=== PATIENT | male | born 1985 | race Caucasian/White ===

== ENCOUNTER → 2023-08-25 09:15 | Outpatient (CLI) | payer OTHER, SELFPAY ==
[2023-08-25 20:26] LABS: Alanine Aminotransferase 27 IU/L (<50); Albumin 4.4 g/dL (3.5-5.0); Albumin Globulin Ratio 1.6 (1.0-2.8); Alkaline Phosphatase 67 U/L (38-126); Aspartate Aminotransferase 30 IU/L (17-59); BUN Creatinine Ratio 18.4 (6-22); Bilirubin Total 1.2 mg/dL (0.2-1.3); Blood Urea Nitrogen 14 mg/dL (9-20); Calcium 9.3 mg/dL (8.4-10.2); Carbon Dioxide 29 mmol/L (22-32); Chloride 104 mmol/L (98-107); Cholesterol 177 mg/dL (140-199); Estimated Glomerular Filt Rate > 60 mL/min (>60); Globulin 2.7 g/dL (1.7-4.1); Glucose 97 mg/dL (70-100); HDL Cholesterol 39 mg/dL (40-60); HEMOLYSIS < 15 (0-50); LDL Cholesterol Calculated 104 mg/dL (<100); Potassium 4.8 mmol/L (3.4-5.1); Sodium 139 mmol/L (137-145); Total Protein 7.1 g/dL (6.3-8.2); Triglycerides 168 mg/dL (35-150)
== END ==
PROVIDERS: PCP Physician Assistant Medical; Visit Provider Family Medicine
DX: Z13.29 Encounter for screening for other suspected endocrine disorder (principal); Z13.6 Encounter for screening for cardiovascular disorders; Z13.1 Encounter for screening for diabetes mellitus; R03.0 Elevated blood-pressure reading, without diagnosis of hypertension
CPT/HCPCS: 80053; 80061; 84443

== ENCOUNTER → 2025-03-23 09:07 | Outpatient (CLI) | payer OTHER, SELFPAY ==
--- NOTE | 2025-03-23 09:08 | DI.MRI.S_ITS ---
PROCEDURE: MR KNEE RT WO CON INDICATIONS: pain TECHNIQUE: Noncontrast sagittal PD fast spin echo and T2 fast spin echo with fat saturation, sagittal 3-D FLASH with fat saturation; coronal T1 spin echo and PD fast spin echo with fat saturation, and axial PD fast spin echo with fat saturation through the knee. COMPARISON: [facility] ([facility]), CR, XR KNEE RT 3V, 02/09/2025, 12:20. [facility], CR, XR KNEE STANDING BILATERAL, 02/23/2025, 13:59. FINDINGS: Image quality: Excellent. Menisci: Subtle signal abnormality involving posterior horn of medial meniscus with questionable inferior articulating surface extension best seen on series 11, image 23. The lateral meniscus is intact. Cruciate ligaments: The anterior and posterior cruciate ligaments appear intact. Medial structures: The medial collateral ligament appears thickened with surrounding edema near its femoral insertion. Visualized portions of the pes anserinus tendons appear normal. No abnormal bursal fluid. Lateral structures: The lateral collateral ligament, long and short heads of the biceps femoris tendon appear intact. The popliteus tendon appears intact. A Iliotibial band appears normal. Anterior structures: Distal quadriceps tendinosis at its superior patellar insertion is seen. Patellar tendon is intact. Patellar alignment is normal. Nonspecific subcutaneous soft tissue edema and swelling along anterior aspect of distal patellar tendon near its tibial insertion. Bones and cartilage: No bone marrow contusions or fractures. 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 Joint space: There is small knee joint fluid. No Guillermo's cyst. Normal appearing synovial plicae are incidentally noted. IMPRESSION: 1. Finding may represent very subtle oblique tear involving posterior horn of medial meniscus extending to inferior articulating surface suggest clinical correlation and follow-up. No lateral meniscal tear. 2. The cruciate ligaments are intact. 3. Low-grade proximal MCL sprain/partial-thickness tear. 4. Distal quadriceps tendinosis. Nonspecific soft tissue edema along anterior aspect of distal patellar tendon near its tibial insertion. No patellar tendon rupture. 5. No marrow edema. No fracture or dislocation. 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 Small joint effusion, no loose bodies. Dictated by: Brian Ambrosio M.D. on 03/23/2025 at 10:22 Approved by: Brian Ambrosio M.D. on 03/23/2025 at 10:41
== END ==
LOC: MRI 09:07
PROVIDERS: PCP Family Medicine; Referring Provider Orthopaedic Surgery; Visit Provider Orthopaedic Surgery
DX: S83.411A Sprain of medial collateral ligament of right knee, initial encounter (principal); M23.91 Unspecified internal derangement of right knee; M94.261 Chondromalacia, right knee
CPT/HCPCS: 73721